=== PATIENT | female | born 1970 | race Asian ===

== ENCOUNTER → 2017-09-30 | Day surgery (SDC) | payer OTHER ==
--- NOTE | 2017-10-04 14:36 | PATH ---
Surgical Pathology Report Patient Name: LAUREN FIGUEROA [facility]. Rec. #: [id number] /Age/Gender: 1970 (Age: 46) / F Account: [id number] Location: [facility] Taken: 09/30/2017 Received: 10/03/2017 Reported: 10/04/2017 Physicians: Mikaela Floyd M.D. 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 Results of Estrogen Receptor (ER) and Progesterone Receptor (NY) studies performed at [facility] are as follows: ER (clone [id number] mouse monoclonal antibody by [employer]): 100% nuclear staining with strong intensity (Positive). NY (clone16 mouse monoclonal antibody by [employer]): ~95% nuclear staining with strong to moderate intensity (Positive). Assays for HER-2/alf and Ki67 are pending, and a report will follow. Positive and negative controls (internal if applicable) show appropriate results. Formalin fixation time ([id number] hrs) exceeds current ASCO/CAP recommendations for ER, NY & Her2 testing (6-72 hrs). Negative results must be interpreted with caution as false negatives may occur. Cold ischemic time is within recommended guidelines. Electronically Signed Antony Stephen M.D. Addendum Reported: 10/06/2017 Addendum Diagnosis Results of Her2 (IHC) & Ki-67 studies performed on block "1" at [place], [place] ([id number]) are as follows: Her2 IHC (EP3 from [employer], formerly known as [id number], using Quevedo Polymer Refine detection kit): 1+ (Negative) Ki-67: up to 50% (High proliferative index) Positive and negative controls (internal if applicable) show appropriate results. Gross Description Received in formalin labeled "left breast biopsy 4:00, 3cmfn," is a 1.7 x 1.5 x 0.3 cm aggregate of multiple baca-yellow, irregular to cylindrical portions of fibroadipose tissue. The formalin is filtered and the specimen is entirely submitted in one cassette. Time to formalin fixation: Less than one minute Total formalin fixation time: Approximately 76 hours. 10/03/201710/03/2017
--- NOTE | 2017-10-04 20:45 | OP ---
DATE OF OPERATION: 09/30/2017 PREOPERATIVE DIAGNOSIS: Left breast mass, 4 o'clock, 3 cm from the nipple. POSTOPERATIVE DIAGNOSIS: Left breast mass, 4 o'clock, 3 cm from the nipple. PROCEDURE: Left ultrasound-guided core biopsy with bow-tie placement. ANESTHESIA: Local. ATTENDING SURGEON: Dilip Floyd MD ESTIMATED BLOOD LOSS: Minimal. COMPLICATIONS: None, bleeding required Gerhard wrap. DESCRIPTION OF PROCEDURE: Patient was made aware of the risks and benefits of procedure and consented. She was placed in a spine position. Under sterile conditions with 1% lidocaine for local anesthesia, a small benigno was made in the skin. Using a 13-gauge suction biopsy device under ultrasound guidance, multiple cores were obtained and submitted to Pathology. Likewise, under ultrasound guidance, a bow-tie clip was placed into the biopsy region. Steri-Strips and a sterile bandage were applied. The patient had some residual bleeding that required persistent pressure, and therefore, in order to be prudent, Gerhard wrap was placed around the patient for 24 hours. Well tolerated by patient. We will contact her with results. DILIP FLOYD M.D. [id number]
== END | disposition home or self-care (01) ==
LOC: FRADUS-SUR 12:43
PROVIDERS: ATTEND Surgery Surgical Oncology
PROC: 0HBU3ZX Excision of Left Breast, Percutaneous Approach, Diagnostic (ICD-10-PCS; principal; 2017-09-30)
DX: N63.23 Unspecified lump in the left breast, lower outer quadrant (principal); C50.512 Malignant neoplasm of lower-outer quadrant of left female breast
CPT/HCPCS: 19083; 76642-TC-RT; 87899; 88305-TC; A4648

== ENCOUNTER → 2017-10-28 | Day surgery (SDC) | payer OTHER ==
--- NOTE | 2017-11-01 15:01 | PATH ---
Surgical Pathology Report Patient Name: LAUREN FIGUEROA [facility]. Rec. #: [id number] /Age/Gender: 1970 (Age: 46) / F Account: [id number] Location: Taken: 10/28/2017 Received: 10/28/2017 Reported: 11/01/2017 Physicians: Rohan Centeno M.D. Specimen(s) Received RIGHT BREAST CORE BIOPSY Clinical History Ultrasound findings: Suspicious Final Diagnosis RIGHT BREAST, MRI GUIDED NEEDLE CORE BIOPSY: FOCAL ATYPICAL LOBULAR HYPERPLASIA (ALH) ARISING IN A BACKGROUND OF BENIGN BREAST TISSUE WITH FIBROADENOMA, AND FIBROCYSTIC CHANGES INCLUDING USUAL DUCTAL HYPERPLASIA (UDH), STROMAL FIBROSIS, AND DUCTAL DILATATION. Comment: Immunohistochemical stain for E-Cadherin is shows lack of staining in the area of atypical lobular hyperplasia. Recommend correlation with clinical and radiologic findings and follow up as clinically indicated. Also see prior specimen [id number]. Electronically Signed Antony Stephen M.D. Gross Description Received in formalin labeled "right breast," is a 2.3 x 2.2 x 0.3 cm aggregate of multiple baca-yellow, irregular to cylindrical portions of fibroadipose tissue. The formalin is filtered and the specimen is entirely submitted in one cassette. Time to formalin fixation: 2 minutes Total formalin fixation time: Approximately 11 hours. 10/28/201710/28/2017
== END | disposition home or self-care (01) ==
LOC: FRADUS-SUR 09:51
PROVIDERS: ATTEND Surgery Surgical Oncology
PROC: 0HBT3ZX Excision of Right Breast, Percutaneous Approach, Diagnostic (ICD-10-PCS; principal; 2017-10-28)
DX: D24.1 Benign neoplasm of right breast (principal); N63.14 Unspecified lump in the right breast, lower inner quadrant; N62 Hypertrophy of breast; N60.81 Other benign mammary dysplasias of right breast; N60.31 Fibrosclerosis of right breast; N64.89 Other specified disorders of breast
CPT/HCPCS: 19085; 88305-TC; 88342-TC; A4648; C1887; G0206-TC

== ENCOUNTER 2017-11-29 07:30 | Day surgery (SDC) | payer OTHER ==
[2017-11-22 12:29] VITALS: BMI 22.8
--- NOTE | 2017-11-23 11:44 | HP ---
Admitting History and Physical - Primary Care Physician PCP: Mikaela Floyd - Admission Chief Complaint: Left breast cancer and right breast atypia History of Present Illness: 46 year old premenapausal female with sister recently diagnosed with breast cancer and herself had a left breast mass noted by treasury associate 07/2017. mammogram showed dense breast tissue and US showed 1cm complex cyst at 4:00. MRI breast showed highly suspicious mass left breast at 5:00 corresponding to US. There was also a .5 cm focus of enhancement right breast 7:00 for which us was advised. US core bx left breast 4:00 invasive ductal carcinoma 2016. and MRI core bx right breast 10/28/2017 showed ALH. History Source: Patient Limitations to Obtaining History: No Limitations - Past Medical History ...LMP: 11/18/17 - Past Surgical History Past Surgical History: Yes: Appendectomy - Smoking History Smoking history: Former smoker Have you smoked in the past 12 months: No Aproximately how many cigarettes per day: 10 If you are a former smoker, when did you quit?: 1994 - Alcohol/Substance Use Hx Alcohol Use: Yes (SOCIAL) Home Medications - Allergies Allergies/Adverse Reactions: Allergies Allergy/AdvReac Type Severity Reaction Status Date / Time nut - unspecified Allergy Severe Itching Verified 11/22/17 12:30 amoxicillin Allergy Verified 11/22/17 12:13 - Home Medications Home Medications: Ambulatory Orders NK [No Known Home Medication] 11/22/17 Family Disease History - Family Disease History Family Disease History: CA: Sister (50) Physical Examination Constitutional: Yes: Well Nourished, No Distress Breast(s): Yes: Other (dense tissue bilaterally post bx changes and 4:00 smooth mass 1 cm left breast. no adneopathy bilaterally) Problem List - Problems (1) Breast cancer, left breast Code(s): C50.912 - MALIGNANT NEOPLASM OF UNSPECIFIED SITE OF LEFT FEMALE BREAST Qualifiers: Breast location: lower outer quadrant of breast Patient sex: female (2) Atypical lobular hyperplasia of left breast Code(s): N60.92 - UNSPECIFIED BENIGN MAMMARY DYSPLASIA OF LEFT BREAST Assessment/Plan Bilateral wide excisions with mammogram needle localization, lymphoscintogram on the left and left sentenel node biopsy possible dissection
[2017-11-29] MEDS ORDERED: MIDAZOLAM HCL 2 MG/2 ML SINGLE DOSE VIAL ONE (12:51)
[2017-11-29] MEDS ORDERED: PROPOFOL 20 ML ONE ×2 (12:56→13:37)
[2017-11-29] MEDS ORDERED: GUM MASTIC/STORAX/MSAL/ALCOHOL 1 DRP DROPSBTL MC ONE (13:11)
[2017-11-29] MEDS ORDERED: ISOSULFAN BLUE 10 MG/ML VIAL SQ ONE (13:11)
[2017-11-29] MEDS ORDERED: BUPIVACAINE HCL/PF 2.5 MG/ML - 30 ML VIAL IJ ONE (13:11)
[2017-11-29] MEDS ORDERED: ONDANSETRON 4 MG/2 ML VIAL IVPUSH PRN (13:14)
[2017-11-29] MEDS ORDERED: KETOROLAC TROMETHAMINE 30 MG/1 ML VIAL IVPUSH PRN (13:14)
[2017-11-29] MEDS ORDERED: DEXTROSE 5%-0.45% SALINE 1,000 ML IV SCH (13:15)
[2017-11-29] MEDS ORDERED: CLINDAMYCIN PHOSPHATE 600 MG/4 ML VIAL ONE (13:30)
[2017-11-29] MEDS ORDERED: DEXAMETHASONE SOD PHOSPHATE 4 MG/1 ML VIAL ONE (13:30)
[2017-11-29] MEDS ORDERED: DESFLURANE GAS 240 ML BOTTLE IH ONE (14:09)
[2017-11-29] MEDS ORDERED: KETOROLAC TROMETHAMINE 30 MG/1 ML VIAL ONE (14:27)
[2017-11-29] MEDS ORDERED: ACETAMINOPHEN 325 MG TABLET (FP) PO PRN (15:13)
[2017-11-29] MEDS ORDERED: oxyCODONE HCL 5 MG TABLET PO PRN (15:13)
[2017-11-29] MEDS ORDERED: LACTATED RINGERS SOLUTION 1,000 ML IV SCH (15:15)
[2017-11-29] MEDS ORDERED: ONDANSETRON 4 MG/2 ML VIAL ONE (15:22)
[2017-11-29 17:26] VITALS: BP 128/78; PULSE 77; TEMP 98.2
--- NOTE | 2017-11-29 18:02 | OP ---
DATE OF OPERATION: 11/29/2017 PREOPERATIVE DIAGNOSES: Left breast cancer and right breast atypia. POSTOPERATIVE DIAGNOSES: Left breast cancer and right breast atypia. PROCEDURE: Left mammographically localized wide excision with sentinel node biopsy and complex tissue transfer as well as right mammographically localized wide excision. ATTENDING SURGEON: Mikaela Floyd MD RIGHT OF WAY AGENT: BRITTNI Mejia ESTIMATED BLOOD LOSS: Minimal. COMPLICATIONS: None. DESCRIPTION OF PROCEDURE: Patient was made aware of the risks and benefits of the procedure and consented. Preoperatively, she went to the Radiology Suite where a needle was placed next to the index lesions bilaterally. Then, she went to Nuclear Medicine where radioactive tracer was injected into the left breast. She was then placed in supine position on the operating room table, and after general anesthesia was induced, the patient was intubated. Next, 2.5 mL of 1% isosulfan blue were locally infiltrated into the peritumoral tissues in the left breast. Waiting approximately 10 minutes with gentle manual compression, a curvilinear incision was made in the left axilla using blunt and sharp dissection. Tissues were dissected down to the axillary fat. Using the Neoprobe as well as blue dye, 3 clusters of blue and hot lymph nodes were identified and surgically excised and submitted for permanent sectioning. Palpation of the rest of the axilla revealed no suspicious lymph nodes, and interrogation by the Neoprobe showed the counts were less than 10%. The wound was copiously irrigated with normal saline. Hemostasis maintained by electrocautery. The wound was then closed with deep 3-0 Vicryl, followed by a running subcuticular 4-0 Monocryl. The left breast was then approached. A curvilinear incision was then made next to the needle using electrocautery. Thick skin flaps were made, and the needle was drawn to the puncture site and wire to the wound. Tissues around the wire were then sharply excised and submitted with a short suture superior, long suture lateral. Specimen radiographs confirmed the presence of the index lesion. Additional segments were taken superior, inferior, medial, lateral, and anterior with clips at the new margins. The deep segment was not taken as I took the breast tissue down to the pectoralis muscle and fascia. Using electrocautery, tissue flaps were made by taking the breast tissue off the pectoralis muscle as well as thick skin flaps. This was rotated into the defect in multiple layers of 2-0 Vicryl. Skin was then closed with deep 3-0 Vicryl, followed by a running subcuticular 4-0 Monocryl. The right breast was then approached using separate incisions and changing gloves. A curvilinear incision was made next to the wire using electrocautery. Thick skin flaps were made, and the needle was drawn to the puncture site and the wire to the wound. Tissues around the wire were then sharply excised and submitted with a short suture superior, long suture lateral. Specimen radiograph confirmed the presence of the index lesion. Specimen was then turned over for permanent sectioning. The wound was copiously irrigated with normal saline. Hemostasis maintained by electrocautery, and the tissue was then closed with interrupted deep 3-0 Vicryl, followed by a running subcuticular 4-0 Monocryl. Steri-Strips and sterile bandages were then applied, and the patient, having tolerated the procedure well, was transferred to the recovery room in excellent condition. Rohan [id number]
--- NOTE | 2017-12-05 17:12 | PATH ---
Surgical Pathology Report Patient Name: LAUREN FIGUEROA [facility]. Rec. #: [id number] /Age/Gender: 1970 (Age: 46) / F Account: [id number] Location: [facility] Taken: 11/29/2017 Received: 11/29/2017 Reported: 12/05/2017 Physicians: Mikaela Floyd M.D. Specimen(s) Received A: LEFT BREAST SENTINEL NODES B: LEFT BREAST WIDE EXCISION C: LEFT BREAST SUPERIOR MARGIN D: LEFT BREAST MEDIAL MARGIN E: LEFT BREAST ANTERIOR MARGIN F: LEFT BREAST INFERIOR MARGIN G: LEFT BREAST LATERAL MARGIN H: RIGHT BREAST WIDE EXCISION Clinical History Left invasive, right ALH Final Diagnosis A. SENTINEL LYMPH NODES, LEFT, EXCISION: FIVE BENIGN LYMPH NODES (0/5). B. BREAST, LEFT, WIDE EXCISION: INVASIVE DUCTAL CARCINOMA, MODERATELY DIFFERENTIATED (TUBULE SCORE: 3/3, NUCLEAR GRADE: 2/3, MITOTIC SCORE: 1/3; TOTAL KAROL SCORE: 6/9) WITH MUCINOUS FEATURES. INVASIVE CARCINOMA MEASURES 6 MM IN GREATEST DIMENSION, MICROSCOPICALLY. FOCAL DUCTAL CARCINOMA IN SITU (DCIS), SOLID TYPE, LOW NUCLEAR GRADE. NO LYMPHOVASCULAR INVASION IDENTIFIED. SURGICAL MARGINS ARE UNINVOLVED BY CARCINOMA; INVASIVE CARCINOMA IS AT 3 MM AND IN SITU CARCINOMA IS AT 5 MM FROM THE CLOSEST LATERAL MARGIN. SEE SPECIMEN C-G FOR FINAL MARGINS. SKIN IS PRESENT AND UNINVOLVED BY CARCINOMA. PRIOR BIOPSY SITE CHANGES ARE PRESENT. REMAINDER OF THE BREAST TISSUE SHOWS FIBROCYSTIC CHANGES. PATHOLOGIC STAGE (pTNM): pT1b pN0(sn). SEE ALSO INVASIVE CARCINOMA CASE SUMMARY BELOW. C. BREAST, LEFT, SUPERIOR, EXCISION: BENIGN BREAST TISSUE. D. BREAST, LEFT, MEDIAL, EXCISION: BENIGN BREAST TISSUE. E. BREAST, LEFT, ANTERIOR, EXCISION: BENIGN FIBROADIPOSE TISSUE. F. BREAST, LEFT, INFERIOR, EXCISION: BENIGN FIBROADIPOSE TISSUE. G. BREAST, LEFT, LATERAL, EXCISION: BENIGN FIBROADIPOSE TISSUE. H. BREAST, RIGHT, WIDE EXCISION: BENIGN BREAST TISSUE WITH CHANGES OF PRIOR BIOPSY AND FIBROCYSTIC CHANGES. Comments Breast Invasive Carcinoma: Surgical Pathology Case Summary (Based on AJCC TNM 8 th edition) Procedure _X_ Excision (less than total mastectomy) Specimen Laterality _X__ Left Tumor Size _X_ Greatest dimension of largest invasive focus >1 mm (specify exact measurement) (millimeters): 6 mm Histologic Type _X_ Invasive carcinoma with mucinous features Histologic Grade (Akrol Histologic Score) Glandular (Acinar)/Tubular Differentiation _X_ Score 3 (<10% of tumor area forming glandular/tubular structures) Nuclear Pleomorphism _X_ Score 2 Mitotic Rate _X_ Score 1 Overall Grade _X_ Grade 2 (scores of 6) Tumor Focality _X_ Single focus of invasive carcinoma Ductal Carcinoma In Situ (DCIS) _X_ DCIS is present in specimen _X_ Negative for extensive intraductal component (EIC) Tumor Extension Skin ___ Invasive carcinoma uninvolved by carcinoma Margins Invasive Carcinoma Margins _X__ Uninvolved by invasive carcinoma Distance from closest margin (millimeters): 3 mm Closest margin: Lateral DCIS Margins _X__ Uninvolved by DCIS Distance from closest margin (millimeters): 5 mm Closest margin: Lateral Regional Lymph Nodes Number of Lymph Nodes with Macrometastases (>2 mm): 0 Number of Lymph Nodes with Micrometastases (>0.2 mm to 2 mm and/or >200 cells): 0 Number of Lymph Nodes with Isolated Tumor Cells (=0.2 mm and =200 cells): 0 Number of Lymph Nodes Examined: 5 Number of [place] Nodes Examined : 5 Treatment Effect _X_ No known presurgical therapy Lymphovascular Invasion _X_ Not identified Pathologic Stage Classification (pTNM, AJCC 8th Edition) Primary Tumor (Invasive Carcinoma) (pT) _X_ pT1b: Tumor >5 mm but =10 mm in greatest dimension Regional Lymph Nodes (pN) Modifier (required only if applicable) _X_ (sn): [place] node(s) evaluated. If 6 or more nodes (sentinel or nonsentinel) are removed, this modifier should not be used. Category (pN) _X_ pN0: No regional lymph node metastasis identified or ITCs only Biomarker Studies Results of ER and DC studies performed on this specimen on prior biopsy ([id number]) at [facility] are as follows: ER (clone [id number] mouse monoclonal antibody by [employer]): 100% nuclear staining with strong intensity (Positive). DC (clone16 mouse monoclonal antibody by [employer]): 95% nuclear staining with moderate to strong intensity (Positive). Her2 IHC (EP3 from [employer], formerly known as [id number], using Quevedo Polymer Refine detection kit): 1+ (Negative) Ki67: up to 50% (High Proliferative index) Electronically Signed Va Sharpe M.D. Gross Description A. Received in formalin labeled "left breast sentinel nodes," are 5 baca, irregular lymph nodes ranging from 0.4 x 0.3 x 0.2 cm to 1.4 x 0.9 x 0.5 cm. The lymph nodes are entirely submitted in 4 cassettes as follows: 1-two whole lymph nodes; 2-4-one whole bisected lymph node each. B. Received in formalin, labeled "left breast wide excision," is a 4.0 x 2.8 x 2.1 cm. baca-yellow, irregular, portion of fibroadipose tissue. There is no needle localization wire present. There is a short suture marking the superior aspect and a long suture marking the lateral aspect, per the surgeon. The anterior surface displays a 1.5 x 0.4 cm baca, elliptical, unremarkable portion of skin. The specimen is inked as follows: Superior blue; inferior green; lateral red; medial yellow; deep black. The specimen is serially sectioned from anterior to deep. Sectioning reveals a 0.6 x 0.4 x 0.4 cm baca, indurated mass with associated hemorrhage. The mass is surrounded by dense white fibrous tissue. The mass is 0.5 cm from the deep margin and 0.5 cm from the lateral margin. It Consultant sections are submitted in 6 cassettes as follows: 1-fullface section of mass with medial and lateral margins; 2-mass with deep margin; 6-5-snbniuvhuo fibrous tissue surrounding mass (each with medial, lateral, superior and inferior margins); 6-skin. Time to formalin fixation: Approximately 1 minute Total formalin fixation time: Approximately 28 hours. C. Received in formalin labeled "left breast superior margin," is a 1.1 x 1.0 x 0.4 cm irregular portion of fibroadipose tissue with a clip marking the new margin, per the surgeon. The new margin is inked blue and the specimen is serially sectioned. The specimen is entirely submitted in one cassette. D. Received in formalin labeled "left breast medial margin," is a 1.4 x 0.9 x 0.8 cm irregular portion of fibroadipose tissue with a clip marking the new margin, per the surgeon. The new margin is inked blue and the specimen is serially sectioned. The specimen is entirely submitted in 2 cassettes. E. Received in formalin labeled "left breast anterior margin," is a 2.0 x 1.4 x 0.6 cm irregular portion of fibroadipose tissue with a clip marking the new margin, per the surgeon. The new margin is inked blue and the specimen is serially sectioned. The specimen is entirely submitted in 3 cassettes. F. Received in formalin labeled "left breast inferior margin," is a 1.3 x 1.2 x 0.4 cm irregular portion of fibroadipose tissue with a clip marking the new margin, per the surgeon. The new margin is inked blue and the specimen is serially sectioned. The specimen is entirely submitted in 2 cassettes. G. Received in formalin labeled "left breast lateral margin," is a 1.5 x 1.2 x 0.6 cm irregular portion of fibroadipose tissue with a clip marking the new margin, per the surgeon. The new margin is inked blue and the specimen is serially sectioned. The specimen is entirely submitted in 2 cassettes. H. Received in formalin, labeled "right breast wide excision," is a 2.4 x 2.1 x 1.6 cm. baca-yellow, irregular, portion of fibroadipose tissue. There is a needle localization wire separately received within the same container which appears to have detached from the specimen. There is a short suture marking the superior aspect and a long suture marking the lateral aspect, per the surgeon. There is no skin or nipple present. The specimen is inked as follows: superior and lateral blue; inferior green; medial yellow; anterior red; deep black. The specimen is serially sectioned from lateral to medial. Sectioning reveals a focus of hemorrhage, consistent with a previous biopsy site. A clip is identified within the focus of hemorrhage. No definitive mass is identified. The specimen is entirely and sequentially submitted in 6 cassettes with the medial margin in cassette 1, the lateral margin in cassette 6 and the section with the biopsy clip in cassette 3. Time to formalin fixation: Approximately 2 minutes Total formalin fixation time: Approximately 27 hours. 11/30/2017 saudi11/30/2017
== END 2017-11-29 17:30 | disposition home or self-care (01) ==
LOC: FASU 07:30
PROVIDERS: ATTEND Surgery Surgical Oncology
PROC: 0HBV0ZZ Excision of Bilateral Breast, Open Approach (ICD-10-PCS; principal; 2017-11-29 13:38)
PROC: 07B60ZX Excision of Left Axillary Lymphatic, Open Approach, Diagnostic (ICD-10-PCS; 2017-11-29 13:38)
DX: C50.912 Malignant neoplasm of unspecified site of left female breast (principal); N60.91 Unspecified benign mammary dysplasia of right breast
CPT/HCPCS: 19281; 84703; 88307-TC; 94760; A9541